=== PATIENT | female | born 1990 | race Caucasian/White ===

== ENCOUNTER 2018-06-13 07:49 | Emergency (ER) | payer MEDICAID ==
[~2018-06-13] VITALS: Ht 170.2 cm; Wt 147.3 kg
[2018-06-13 07:59] VITALS: BP 167/105
== END 2018-06-13 08:42 | disposition home or self-care (01) ==
LOC: ED 08:37
DX: S82.832A Other fracture of upper and lower end of left fibula, initial encounter for closed fracture (principal); X50.1XXA Overexertion from prolonged static or awkward postures, initial encounter; Y93.89 Activity, other specified; Y99.8 Other external cause status; Y92.009 Unspecified place in unspecified non-institutional (private) residence as the place of occurrence of the external cause; F41.1 Generalized anxiety disorder; K21.9 Gastro-esophageal reflux disease without esophagitis; F32.9 Major depressive disorder, single episode, unspecified; Z90.49 Acquired absence of other specified parts of digestive tract
CPT/HCPCS: 99281

== ENCOUNTER 2018-07-08 13:00 | Emergency (ER) | payer MEDICAID ==
[~2018-07-08] VITALS: Ht 170.2 cm; Wt 140.9 kg
[2018-07-08 13:14] VITALS: BP 128/86
== END 2018-07-08 14:52 | disposition home or self-care (01) ==
LOC: ED 14:01
DX: S93.491A Sprain of other ligament of right ankle, initial encounter (principal); K21.9 Gastro-esophageal reflux disease without esophagitis; W19.XXXA Unspecified fall, initial encounter; Y93.89 Activity, other specified; Y92.89 Other specified places as the place of occurrence of the external cause; Y99.8 Other external cause status
CPT/HCPCS: 99284

== ENCOUNTER 2019-08-07 12:39 | Emergency (ER) | payer MEDICAID, OTHER ==
[~2019-08-07] VITALS: Ht 170.2 cm; Wt 132.0 kg
[~2019-08-07 12:39] MED LIST: ALPR1TAB2 PO; FLUO20CA19 PO; LAMO25TB2 PO; METH500T7 PO; OXYC5TAB3 PO; PANT20TA2 PO; POLY17PO5 PO
[2019-08-07 12:41] VITALS: BP 132/97
--- NOTE | 2019-08-07 12:48 | NUR ---
Pt ambulates from triage to room with steady gait and balance. NADN. No obvious defecits observed.
--- NOTE | 2019-08-07 12:58 | NUR ---
REPORT FROM RICHARD HERNANDEZ, ASSUMED CARE OF PT AT THIS TIME
--- NOTE | 2019-08-07 13:01 | NUR ---
Pt presents to ED with c/o pain on right lateral thigh 6 days post op for skin graft. Pt states need for pain management as her pain contract with pain MD was terminated. Pt resting on gurney. NADN. No other needs expressed.
[2019-08-07] MEDS ORDERED: OXYcodone/APAP 5/325MG TABLET ONE (13:10)
[2019-08-07] MEDS ORDERED: OXYcodone/APAP 10/325MG TABLET ONE (13:15)
[2019-08-07] MEDS ORDERED: OXYcodone/APAP 10/325MG TABLET PO ONE (13:30)
== END 2019-08-07 13:29 | disposition home or self-care (01) ==
LOC: ED 13:11
DX: G89.29 Other chronic pain (principal); M79.604 Pain in right leg; Z76.0 Encounter for issue of repeat prescription; Z94.5 Skin transplant status; F31.9 Bipolar disorder, unspecified; F17.210 Nicotine dependence, cigarettes, uncomplicated
CPT/HCPCS: 99282

== ENCOUNTER 2020-05-21 23:21 | Emergency (ER) | payer OTHER ==
[~2020-05-21] VITALS: Ht 170.2 cm; Wt 122.0 kg
[2020-05-22] MEDS ORDERED: LIDOCAINE-MPF 1%, 5ML INFIL ONE
[2020-05-22] MEDS ORDERED: LIDOCAINE 1%-EPI 1:100K, 20ML INFIL ONE (00:30)
[2020-05-22] MEDS ORDERED: ONDANSETRON ODT 4 MG PO ONE (00:30)
[2020-05-22 01:03] VITALS: BP 133/85
== END 2020-05-22 01:44 | disposition home or self-care (01) ==
LOC: ED 05-22 01:15
DX: S91.312A Laceration without foreign body, left foot, initial encounter (principal); S80.211A Abrasion, right knee, initial encounter; K21.9 Gastro-esophageal reflux disease without esophagitis; F17.200 Nicotine dependence, unspecified, uncomplicated; Z90.49 Acquired absence of other specified parts of digestive tract; W22.8XXA Striking against or struck by other objects, initial encounter; Y93.89 Activity, other specified; Y92.098 Other place in other non-institutional residence as the place of occurrence of the external cause; Y99.8 Other external cause status
CPT/HCPCS: 12002; 73564; 73630; 99284; Q0162